=== PATIENT | male | born 1945 | race Caucasian/White ===

== ENCOUNTER 2017-08-27 19:29 | Emergency (ER) | payer OTHER, MEDICARE ==
[~2017-08-27] VITALS: Ht 165.1 cm; Wt 81.6 kg
[2017-08-27 19:32] VITALS: BP 150/88; PULSE 92; TEMP 36.7; O2SAT 94; Ht 165.1 cm; Wt 81.6 kg
[2017-08-27] MEDS ORDERED: LIDOCAINE/EPINEPHRINE 1% 20 ML VIAL INFIL STA (19:42)
[2017-08-27] MEDS ORDERED: DIPHTHERIA/TETANUS/PERTUSSIS 0.5 ML SYR/VIAL IM. ONE (19:45)
--- NOTE | 2017-08-27 20:16 | DIAGNOSTIC IMAGING REPORT ---
CT OF THE HEAD WITHOUT CONTRAST CLINICAL HISTORY: Head trauma. Laceration. COMPARISON STUDY: No previous studies for comparison. CT DOSE: 729.78 mGycm TECHNIQUE: Helical axial images of the head were obtained without IV contrast. Automated exposure control was utilized for the study. A dose lowering technique was utilized adhering to the principles of ALARA. FINDINGS: No acute intracranial hemorrhage, midline shift or mass effect is present. Mild atrophy is noted. Ventricular system is unremarkable. Basilar cisterns are patent. There are no extra-axial collections. Mild white matter hypodensities suggest small vessel disease. There are no findings to suggest acute dural sinus thrombosis or acute territorial infarct. Mastoid air cells are clear. There is no calvarial fracture. There is polypoid mucosal thickening of the sinuses, including a 2.3 cm frontal sinus lesion. IMPRESSION: 1. No acute intracranial findings. 2. Polypoid mucosal thickening of the sinuses which is likely chronic. Electronically signed by: Surjit Cordero M.D. 08/27/2017 8:15 PM Dictated Date/Time: 08/27/2017 8:12 PM
--- NOTE | 2017-08-27 20:57 | EMERGENCY ROOM VISIT NOTE ---
History First contact with patient: 19:38 Chief Complaint: LACERATION/CUT (SUT/DERMABOND) Stated Complaint: HEAD GASH Nursing Triage Summary: pt was ice skating and fell hittinghis head on the ice, no loc. lac to posterior head, baby asprin daily. History of Present Illness This patient is a 71-year-old male who presents to the Emergency Department for evaluation of their scalp laceration. Patient sustained the laceration while ice skating at the local ice rink. He slipped, fell striking the back of his head. They report a moderate amount of bleeding initially. They report no loss of consciousness. They deny any headache, visual disturbance, nausea, vomiting, or neck pain. Patient rates his current discomfort as a 1/10. Patient's Tetanus status is not currently up-to-date. He notes he takes a baby aspirin daily and also has left wrist pain. Review of Systems A complete 10-point Review of Systems was discussed with the patient, with pertinent positives and negatives listed in the History of Present Illness. All remaining Review of Systems questions can be considered negative unless otherwise specified. Past Medical/Surgical History Noncontributory. Family History Noncontributory. Social History Smoking Status: Never Smoker Patient is from [place] and is here visiting. Physical Exam Vital Signs Date Time Temp Pulse Resp B/P (MAP) Pulse Ox O2 Delivery O2 Flow Rate FiO2 08/27/17 19:32 36.7 92 18 150/88 94 Room Air Physical Exam VITAL SIGNS - Vital signs and nursing notes were reviewed. Stable. GENERAL -71-year-old male appearing his stated age. Communicates well with provider and answers questions appropriately. SKIN - There are 2 cm noted on the occiput region of the scalp, they both measure approximately 3 cm in length. Total repairable length is 6 cm. The edges gape apart with traction. There is minimal active bleeding appreciated. No deep structures including vessels, musculature, or bony structures are appreciated. HEAD - Normocephalic. No Langford's Sign or Raccoon's Eyes. No depressed skull fractures palpable. EYES - PERRL with EOMI bilaterally. Without subconjunctival hemorrhage. Palpebral conjunctiva pink and moist with no injection. EARS - No deformities of external structures noted on gross examination bilaterally. No hemotympanum present. No tympanic perforation noted. NOSE - Midline and without cyanosis. No epistaxis or clear watery discharge noted. MOUTH/OROPHARYNX - Without perioral cyanosis. Tongue midline with equal elevation of palate bilaterally. No blood noted in the oropharynx. No tonsillar hypertrophy, erythema, or exudates noted. No dental fractures noted. NECK - FROM assessed. No tenderness to palpation over the cervical spinous processes. No cervical paraspinal muscle tenderness noted. LUNGS - Chest wall symmetric without accessory muscle use, intercostals retractions, or central cyanosis. Normal vesicular breath sounds CTA B/L. No wheezes, rales, or rhonchi appreciated. CARDIAC - RRR with S1/S2. No murmur, rubs, or gallops appreciated. EXTREMITIES - No gross deformities noted of the extremities. Full range of motion of left wrist, with minimal tenderness noted at the distal aspect. +5/5 strength noted in UE/LE bilaterally. NEUROLOGIC - Cranial nerves II through XII grossly intact. Sensory intact to light touch throughout. PSYCH - A&O, and cooperates fully with examiner. Pt is very pleasant and interacts well with examiner. Medical Decision & Procedures ER Provider Diagnostic Interpretation: CT OF THE HEAD WITHOUT CONTRAST CLINICAL HISTORY: Head trauma. Laceration. COMPARISON STUDY: No previous studies for comparison. CT DOSE: 729.78 mGycm TECHNIQUE: Helical axial images of the head were obtained without IV contrast. Automated exposure control was utilized for the study. A dose lowering technique was utilized adhering to the principles of ALARA. FINDINGS: No acute intracranial hemorrhage, midline shift or mass effect is present. Mild atrophy is noted. Ventricular system is unremarkable. Basilar cisterns are patent. There are no extra-axial collections. Mild white matter hypodensities suggest small vessel disease. There are no findings to suggest acute dural sinus thrombosis or acute territorial infarct. Mastoid air cells are clear. There is no calvarial fracture. There is polypoid mucosal thickening of the sinuses, including a 2.3 cm frontal sinus lesion. IMPRESSION: 1. No acute intracranial findings. 2. Polypoid mucosal thickening of the sinuses which is likely chronic. Electronically signed by: Surjit Cordero M.D. 08/27/2017 8:15 PM Dictated Date/Time: 08/27/2017 8:12 PM L WRIST W/NAVICULAR MIN 3 VIEWS CLINICAL HISTORY: Left wrist pain status post fall. COMPARISON: None FINDINGS: Alignment of the left wrist is anatomic. There is no acute fracture. There is severe arthritis of the left first carpometacarpal joint. Note is made of medial left wrist soft tissue swelling. IMPRESSION: 1. No acute fracture or dislocation of the left wrist. 2. 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 3. Medial left wrist soft tissue swelling. Electronically signed by: Surjit Cordero M.D. 08/27/2017 8:58 PM Dictated Date/Time: 08/27/2017 8:56 PM Medications Administered Medications (Trade) Dose Ordered Sig/Thelma Route Start Time Stop Time Status Last Admin Dose Admin Diphtheria/ Pertussis/Tetanus Vacc (Adacel Inj) 0.5 ml ONCE ONCE IM. 08/27/17 19:45 08/27/17 19:46 DC 08/27/17 19:49 0.5 ML Medical Decision Patient was seen and evaluated by myself. Patient had no focal neurological deficits. Patient's exam is otherwise unremarkable. Patient reports no headaches , visual disturbances, nausea, vomiting, or over-lethargy. Mechanism of injury , and taking a baby aspirin are concerning, and I do believe that a CT scan of the head is warranted. Through shared decision-making, CT scan was obtained of the head. Results as above. No acute process essentially from his fall. X- ray was also pain in the left wrist and was found to be negative. He was given a left wrist lacer splint. He is to follow with the family doctor when he has the nohelia removed for the left wrist. Risks and benefits of performing primary wound closure versus no repair were discussed with the patient who verbalizes understanding. Verbal consent was obtained prior to performing the procedure. 3 cc of 1% buffered lidocaine with epinephrine was used to anesthetize the 2, 3 cm laceration. The wound was cleansed and prepped in the typical sterile fashion utilizing normal saline and Betadine. The wound was sterilely draped. Once proper anesthetization was established, the wound was further examined and demonstrated no deep involvement. The wound was copiously irrigated with normal saline and Betadine. The wound was closed using 9 total nohelia with the wound edges being well approximated. Patient tolerated the procedure well. No complications were met. The wound was cleansed and dressed with a Bacitracin dressing. Patient received their Adacel vaccination. Patient educated on worrisome symptoms for return visit to the Emergency Department. Patient discharged to home in good condition. In the evaluation and treatment of this patient, the following differential diagnoses were considered: Concussion, Contrecoup Injury, Brain Tumor, Depression, Encephalitis, Hypothyroidism, Meningitis, CVA, TIA, Migraine, Cluster Headache, Intracranial Abnormality, Intracranial Hemorrhage, Subdural Hematoma, Subarachnoid Hemorrhage, Hydrocephalus, Wrist Sprain, Wrist Fracture , Wrist Dislocation, Scapholunate Dissociation, Carpal Fracture, Metacarpal Fracture, Radial Styloid Process Fracture, Ulnar Styloid Process Fracture, or Carpal Tunnel Syndrome. Blood pressure was elevated here today I believe secondary to situation. He is to follow with the family doctor to have the sutures removed in 7-10 days and this can be reassessed at that time. Impression Primary Impression: Fall Additional Impressions: Laceration Wrist pain, left Departure Information Dispostion Home / Self-Care Condition GOOD Referrals No Doctor, Assigned (PCP) Patient Instructions [facility] Additional Instructions Discharge Instructions: You have received 9 nohelia on your head. These nohelia are NOT dissolvable and WILL need to be removed by a health care provider in 7-10 days. You can return to the Emergency Department or contact your Primary Care Provider to have these nohelia removed. Proper wound care is essential for adequate wound healing and infection prevention. You can shower and clean the wound with soap and water. Do scour over the wound, pat dry with a towel. Do not submerse the wound until the nohelia have been removed. You can use an antibiotic ointment with a dressing over the wound for the next 3-4 days. After this time you may leave the wound dry and open to the air. If crust develops over the wound you can use a Q-tip to apply a 1:1 peroxide:water solution to clean the wound. Look for signs of infection of the wound including: increased pain, swelling, foul discharge, streaking, or increased temperature. If any of these are noticed you should return to the Emergency Department for further assessment and treatment. As with any laceration you may have received nerve damage to the surrounding tissues. This damage may or may not be permanent. For pain control, you can use the following [id number] medicines (if >12 yo): - Regular strength (325mg/tab) Tylenol (acetaminophen) 2 tabs every 4-6 hours as needed. Do not exceed 12 tablets in a 24 hour period. Avoid taking more than 3 grams (3000 mg) of Tylenol per day. This includes any other sources of acetaminophen you may take on a regular basis. - Regular strength (200 mg/tab) Advil (ibuprofen) 1-2 tabs every 4-6 hours as needed. Do not exceed a dose of 3200 mg per day. Return to the emergency department if your symptoms worsen despite treatment course outlined above. Please follow with the family doctor for the left wrist pain if it persists. CT OF THE HEAD WITHOUT CONTRAST CLINICAL HISTORY: Head trauma. Laceration. COMPARISON STUDY: No previous studies for comparison. CT DOSE: 729.78 mGycm TECHNIQUE: Helical axial images of the head were obtained without IV contrast. Automated exposure control was utilized for the study. A dose lowering technique was utilized adhering to the principles of ALARA. FINDINGS: No acute intracranial hemorrhage, midline shift or mass effect is present. Mild atrophy is noted. Ventricular system is unremarkable. Basilar cisterns are patent. There are no extra-axial collections. Mild white matter hypodensities suggest small vessel disease. There are no findings to suggest acute dural sinus thrombosis or acute territorial infarct. Mastoid air cells are clear. There is no calvarial fracture. There is polypoid mucosal thickening of the sinuses, including a 2.3 cm frontal sinus lesion. IMPRESSION: 1. No acute intracranial findings. 2. Polypoid mucosal thickening of the sinuses which is likely chronic. Electronically signed by: Surjit Cordero M.D. 08/27/2017 8:15 PM Dictated Date/Time: 08/27/2017 8:12 PM L WRIST W/NAVICULAR MIN 3 VIEWS CLINICAL HISTORY: Left wrist pain status post fall. COMPARISON: None FINDINGS: Alignment of the left wrist is anatomic. There is no acute fracture. There is severe arthritis of the left first carpometacarpal joint. Note is made of medial left wrist soft tissue swelling. IMPRESSION: 1. No acute fracture or dislocation of the left wrist. 2. 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 3. Medial left wrist soft tissue swelling. Electronically signed by: Surjit Cordero M.D. 08/27/2017 8:58 PM Dictated Date/Time: 08/27/2017 8:56 PM Problem Qualifiers
== END 2017-08-27 21:19 | disposition home or self-care (01) ==
LOC: C.EDB 19:30 → C.EDD 21:19
DX: S01.01XA Laceration without foreign body of scalp, initial encounter (principal); W00.0XXA Fall on same level due to ice and snow, initial encounter; M25.532 Pain in left wrist; Z23 Encounter for immunization